=== PATIENT | male | born 1955 | race Caucasian/White ===

== ENCOUNTER → 2016-04-16 | Outpatient (CLI) | payer OTHER ==
--- NOTE | 2016-04-16 08:45 | CT ---
EXAMINATION TYPE: CT urogram wo/w con DATE OF EXAM: 04/16/2016 8:14 AM COMPARISON: NONE HISTORY: Microscopic hematuria, elevated PSA CT DLP: 3340 mGycm, Automated Exposure Control for Dose Reduction was Utilized. CONTRAST: CT scan of the abdomen and pelvis is performed without oral and without and with IV Contrast, patient injected with 100 ml mL of Omnipaque 300. Urogram protocol with 3-D reconstructed images created on a independent workstation and reviewed. FINDINGS: KUB: There is single punctate hyperdense focus suspicious for 2 mm calculus lower pole calyx right ki dney on image 26 series 3. This is confirmed on coronal series 4 image 89. No left-sided renal calcul i are clearly seen on noncontrast images. There is minimal nonspecific perinephric fat stranding bilaterally may be product of chronic medical renal disease. Postcontrast images show symmetric cortical medullary uptake and excretion from both k idneys without evidence of hydronephrosis bilaterally. There is a subcentimeter low dense lesion lowe r pole level right kidney seen best coronal image 91 series 10 that is too small to further character ize for presumed benign. Visualized portion of both ureters show no suspicious calculi or filling def ects. Urinary bladder appears within normal limits in the midline of the anterior pelvis. No intralum inal mass or wall thickening is seen. LUNG BASES: No significant abnormality is appreciated. LIVER/GB: Subcentimeter low dense lesion left hepatic lobe on image 2 series 3 is too small to furthe r characterize but presumed benign PANCREAS: No significant abnormality is seen. SPLEEN: No significant abnormality is seen. ADRENALS: No significant abnormality is seen. BOWEL: Normal-appearing appendix is seen from the cecum. PROSTATE/SEMINAL VESICLES: Prostate gland is heterogeneous in appearance and upper limits of normal i n size. There are slightly prominent seminal vesicles seen bilaterally LYMPH NODES: No greater than 1cm abdominal or pelvic lymph nodes are appreciated. OSSEOUS STRUCTURES: Mild multilevel spurring is present. There is mild facet arthropathy lower lumbar levels. OTHER: There is mild calcified atherosclerotic change of aorta and branch vessels. IMPRESSION: A 2 mm punctate calculus lower pole level right kidney is identified.
== END | disposition home or self-care (01) ==
LOC: RADCTMAIN 07:07
PROVIDERS: ATTEND Urology
DX: N20.0 Calculus of kidney (principal)
CPT/HCPCS: 74178; 74400; Q9967

== ENCOUNTER → 2019-10-16 | Outpatient (CLI) | payer BC ==
--- NOTE | 2019-10-16 13:45 | ECHOF ---
Referral Reason:R01.1 undiagnosed cardiac murmur MEASUREMENTS -------- HEIGHT: 172.7 cm WEIGHT: 113.4 kg BP: RVIDd: 3.0 cm (< 3.3) IVSd: 1.0 cm (0.6 - 1.1) LVIDd: 4.3 cm (3.9 - 5.3) LVPWd: 1.4 cm (0.6 - 1.1) IVSs: 1.8 cm LVIDs: 2.9 cm LVPWs: 1.8 cm LAESV Index (A-L): 23.37 ml/m Ao Diam: 3.0 cm (2.0 - 3.7) AV Cusp: 1.9 cm (1.5 - 2.6) LA Diam: 3.9 cm (2.7 - 3.8) MV EXCURSION: 14.230 mm (> 18.000) MV EF SLOPE: 79 mm/s (70 - 150) EPSS: 0.9 cm MV E David: 0.98 m/s MV DecT: 232 ms MV A David: 0.99 m/s MV E/A Ratio: 0.99 RAP: 5.00 mmHg RVSP: 21.85 mmHg FINDINGS -------- Sinus rhythm. This was a technically adequate study. The left ventricular size is normal. There is mild concentric left ventricular hypertrophy. Overa ll left ventricular systolic function is normal with, an EF between 55 - 60 %. Normal LAP Grade 1 D iastolic Dysfunction. The right ventricle is normal in size. Normal LA size by volume 22+/-6 ml/m2. The right atrial size is normal. Interatrial and interventricular septum intact. The aortic valve is trileaflet, and appears structurally normal. No aortic stenosis or regurgitation. The mitral valve is normal. Mild mitral regurgitation is present. The tricuspid valve appears structurally normal. Mild tricuspid regurgitation present. Right vent ricular systolic pressure is normal at < 35 mmHg. Trace/mild (physiologic) pulmonic regurgitation. The aortic root size is normal. Normal inferior vena cava with normal inspiratory collapse consistent with estimated right atrial pre ssure of 5 mmHg. There is no pericardial effusion. CONCLUSIONS -------- 1. There is mild concentric left ventricular hypertrophy. 2. Overall left ventricular systolic function is normal with, an EF between 55 - 60 %. 3. Normal LAP Grade 1 Diastolic Dysfunction. 4. Normal LA size by volume 22+/-6 ml/m2. 5. The aortic valve is trileaflet, and appears structurally normal. No aortic stenosis or regurgitati on. 6. Mild mitral regurgitation is present. 7. Mild tricuspid regurgitation present. 8. Trace/mild (physiologic) pulmonic regurgitation. 9. There is no pericardial effusion. [employer]ICE [employer]GEANT: Kimberly Ojeda RDCS
== END | disposition home or self-care (01) ==
LOC: RADECHMAIN 12:10
PROVIDERS: ATTEND Family Medicine
DX: I08.1 Rheumatic disorders of both mitral and tricuspid valves (principal)
CPT/HCPCS: 93306

== ENCOUNTER 2021-12-28 06:22 | Day surgery (SDC) | payer BC, OTHER ==
[2021-12-25 11:10] VITALS: BMI 37.2
[~2021-12-28 06:22] MED LIST: ACETAMINOPHEN TAB 500 MG TAB PO PRN; HEPARIN SODIUM,PORCINE/PF 5,000 UNIT/0.5 ML SYRINGE SQ PRN; Pre Op ABX Message 1 EACH MISC MISCELLANE ONE
[2021-12-28] MEDS ORDERED: DEXAMETHASONE SOD PHOSPHATE 4 MG/ML 1 ML VIAL IV ONE (06:57)
[2021-12-28] MEDS ORDERED: LIDOCAINE 1% (10MG/ML) FOR IV START INTRADERMA PRN (06:57)
[2021-12-28] MEDS ORDERED: MIDAZOLAM 2 MG/2 ML VIAL IV PRN (06:57)
[2021-12-28] MEDS ORDERED: HYDROmorphone 0.5 MG/0.5 ML SYRINGE IVP PRN (06:57)
[2021-12-28] MEDS ORDERED: ONDANSETRON 4 MG/2 ML VIAL IVP ONE (06:57)
[2021-12-28] MEDS ORDERED: ONDANSETRON 4 MG/2 ML VIAL ONE (07:06)
[2021-12-28] MEDS: LACTATED RINGERS 1,000 ML IV SCH ×2 (07:11→07:26)
[2021-12-28] MEDS ORDERED: PROPOFOL 10 MG/ML 20 ML VIAL IV ONE (07:23)
[2021-12-28] MEDS ORDERED: SUCCINYLCHOLINE CHLORIDE 200 MG/10 ML VIAL IV ONE (07:23)
[2021-12-28] MEDS ORDERED: fentaNYL (PF) 50 MCG/ML 2 ML AMP ONE (07:23)
[2021-12-28] MEDS ORDERED: ePHEDrine 50 MG/ML 1 ML VIAL ONE (07:23)
[2021-12-28] MEDS ORDERED: GLYCOPYRROLATE 0.2 MG/ML 2 ML VIAL ONE (07:23)
[2021-12-28] MEDS ORDERED: ROCURONIUM 10 MG/ML (5 ML VIAL) IV ONE (07:23)
[2021-12-28] MEDS ORDERED: LIDOCAINE 2% INJ 20 MG/ML (2 ML VIAL) ONE (07:23)
[2021-12-28] MEDS ORDERED: MIDAZOLAM 2 MG/2 ML VIAL ONE (07:23)
[2021-12-28] MEDS ORDERED: ALBUTEROL HFA INHALER INHALATION ONE (07:23)
[2021-12-28] MEDS ORDERED: NEOSTIGMINE 1 MG/ML 10 ML VIAL ONE (07:23)
[2021-12-28] MEDS ORDERED: SODIUM CHLORIDE 0.9% 50 ML with ceFAZolin 2,000 MG IV ONE ×2 (07:35)
[2021-12-28] MEDS ORDERED: BUPIVACAIN-EPI 0.25%-1:200,000 30 ML VIAL SQ ONE (07:54)
[2021-12-28] MEDS ORDERED: NALOXONE 0.4 MG/ML 1 ML VIAL IV PRN (08:34)
[2021-12-28] MEDS ORDERED: HYDROcodone/APAP 5-325MG 1 EACH TAB PO PRN (08:34)
--- NOTE | 2021-12-28 08:38 | P.OP ---
Date of Procedure: 12/28/21 Procedure(s) Performed: PREOPERATIVE DIAGNOSIS: Left neck melanoma POSTOPERATIVE DIAGNOSIS: Same PROCEDURE: Wide excision left neck melanoma with intermediate closure SURGEON: Meryl EBL: 2 Aga ANESTHESIA: Gen. COMPLICATIONS: None OPERATIVE PROCEDURE: Patient placed under general anesthesia. Left neck prepp ed and draped sterilely. The patient had a scar measuring approximately 1 cm in diameter. Margins of 1 cm were drawn out on the skin. A 6 x 3 cm incision was then made encompassing the melanoma scar site. No residual pigmentation seen. The subcutaneous tissues were divided using electrocautery. The mass was fully excised and sent to pathology for close examination. Flaps are raised superior ly and inferiorly in the subcutaneous plane using electrocautery. Subcutaneous tissues were then closed using interrupted 3-0 Vicryl sutures. The skin was closed using a running 4-0 nylon suture. Sterile dressings then applied. Length of intermediate closure 6 cm. DISPOSITION: Stable to recovery room
[2021-12-28 08:42] VITALS: RESP 16; TEMP 98
[2021-12-28 09:35] VITALS: BP 96/59; PULSE 63
== END 2021-12-28 10:01 | disposition home or self-care (01) ==
LOC: OR 06:22
PROVIDERS: ATTEND Surgery
DX: C43.4 Malignant melanoma of scalp and neck (principal); I10 Essential (primary) hypertension; J45.909 Unspecified asthma, uncomplicated; E78.00 Pure hypercholesterolemia, unspecified; E78.5 Hyperlipidemia, unspecified; F41.8 Other specified anxiety disorders; Z79.890 Hormone replacement therapy; Z79.899 Other long term (current) drug therapy
CPT/HCPCS: 11626; 12042; 88305; J2250; J0330; J1100; J2710; J2405; J0690; J3010; J2704; J1644; J2001

== ENCOUNTER 2022-05-04 08:44 | Day surgery (SDC) | payer BC, MEDICARE ==
[~2022-05-04 08:44] MED LIST changes: -ACETAMINOPHEN TAB 500 MG TAB PO PRN; -HEPARIN SODIUM,PORCINE/PF 5,000 UNIT/0.5 ML SYRINGE SQ PRN; +LACTATED RINGERS 1,000 ML IV SCH; -Pre Op ABX Message 1 EACH MISC MISCELLANE ONE
[2022-05-04 09:07] VITALS: RESP 16; TEMP 96.8
[2022-05-04] MEDS ORDERED: LIDOCAINE 2% INJ 20 MG/ML (2 ML VIAL) ONE (09:40)
[2022-05-04] MEDS ORDERED: PROPOFOL 10 MG/ML 20 ML VIAL IV ONE (09:40)
--- NOTE | 2022-05-04 09:42 | P.GSHP ---
History of Present Illness H&P Date: 05/04/22 Chief Complaint: Colon cancer screening 67-year-old male here today for colonoscopy. Last colonoscopy 10-15 years ago. No bowel complaints. No family history of colon cancer. Past Medical History Past Medical History: Cancer, Hyperlipidemia, Hypertension Additional Past Medical History / Comment(s): seasonal allergies.melanoma. due for colonoscopy screening History of Any Multi-Drug Resistant Organisms: None Reported Past Surgical History: Tonsillectomy Additional Past Surgical History / Comment(s): removal of melanoma neck Past Anesthesia/Blood Transfusion Reactions: No Reported Reaction Additional Past Anesthesia/Blood Transfusion Reaction / Comment(s): no blood transfusions Smoking Status: Former smoker - Past Family History Brother(s) Family Medical History: Cancer Additional Family Medical History / Comment(s): passed with melanoma at age 64. Mother Family Medical History: Cancer Additional Family Medical History / Comment(s): brain tumor at age 57 Father Family Medical History: Cancer Additional Family Medical History / Comment(s): live CA at age 80 Medications and Allergies Home Medications Medication Instructions Recorded Confirmed Type Aspirin 81 mg PO 12/25/21 05/04/22 History Cholecalciferol (Vitamin D3) 125 mcg PO DAILY 12/25/21 05/04/22 History [Vitamin D3 (125 MCG = 5,000 IU)] Cyanocobalamin (Vitamin B-12) 1,000 mcg PO DAILY 12/25/21 05/04/22 History [Vitamin B-12] FLUoxetine HCL [PROzac] 20 mg PO QA 12/25/21 05/04/22 History Fenofibrate,Micronized 130 mg PO 12/25/21 05/04/22 History [Fenofibrate] Fexofenadine HCl [Rosario Allergy] 180 mg PO DAILY 12/25/21 05/04/22 History Krill/Verbena-3/Dha/Epa/Lipids 1 each PO 12/25/21 05/04/22 History [Krill Oil 350 mg Softgel] Montelukast Sodium [Singulair] 10 mg PO 12/25/21 05/04/22 History Simvastatin 40 mg PO HS 12/25/21 05/04/22 History Zinc Gluconate [Zinc] 50 mg PO DAILY 12/25/21 05/04/22 History hydroCHLOROthiazide 12.5 mg PO DAILY 12/25/21 05/04/22 History lisinopriL [Prinivil] 10 mg PO QAM 12/25/21 05/04/22 History Allergies Allergy/AdvReac Type Severity Reaction Status Date / Time No Known Allergies Allergy Verified 05/04/22 08:55 Surgical - Exam Vital Signs Temp Pulse Resp BP Pulse Ox 96.8 F L 80 16 135/74 94 L 05/04/22 08:53 05/04/22 08:53 05/04/22 08:53 05/04/22 08:53 05/04/22 08:53 Physical exam: General: Well-developed, well-nourished HEENT: Normocephalic, sclerae nonicteric Abdomen: Nontender, nondistended Extremities: No edema Neuro: Alert and oriented Assessment and Plan (1) Colon cancer screening Narrative/Plan: 67-year-old male scheduled for colonoscopy at this time. Current Visit: Yes Status: Acute Code(s): Z12.11 - ENCOUNTER FOR SCREENING FOR MALIGNANT NEOPLASM OF COLON SNOMED Code(s): 715411352
--- NOTE | 2022-05-04 09:56 | P.PCN ---
Date of Procedure: 05/04/22 Procedure(s) Performed: PREOPERATIVE DIAGNOSIS: Colon cancer screening POSTOPERATIVE DIAGNOSIS: Small transverse colon polyp PROCEDURE: Colonoscopy with snare polypectomy ANESTHESIA: MAC SURGEON: Rodriguez Sheth M.D. SPECIMENS: Polyp ENDOSCOPIC PROCEDURE: The patient was placed on the endoscopy table in the left decubitus position. The Olympus colonoscope was inserted into the anus and passed under direct visualization to the base of the cecum. The appendiceal orifice was visualized. From that point the scope was slowly withdrawn inspecting all surfaces carefully. There were no neoplastic inflammatory or polypoid lesions throughout the cecum and ascending colon. In the transverse colon a small polyp was seen and removed using the cold snare technique. The remainder of the transverse descending sigmoid and rectum appeared normal. There was no diverticulosis seen. Digital rectal examination was normal. The patient was taken to the recovery room in stable condition per anesthesia guidelines. RECOMMENDATIONS: Resume diet. Await biopsies results. Anticipate repeat colonoscopy 7-10 years
[2022-05-04 10:32] VITALS: BP 121/71; PULSE 58
== END 2022-05-04 10:50 | disposition home or self-care (01) ==
LOC: ORWHC2ENDO 08:44
PROVIDERS: ATTEND Surgery
DX: Z12.11 Encounter for screening for malignant neoplasm of colon (principal); K63.5 Polyp of colon; I10 Essential (primary) hypertension; E78.5 Hyperlipidemia, unspecified; Z87.891 Personal history of nicotine dependence; Z80.0 Family history of malignant neoplasm of digestive organs; Z79.82 Long term (current) use of aspirin; Z79.899 Other long term (current) drug therapy
CPT/HCPCS: 45385; J2704; J2001; 88305